=== PATIENT | female | born 1955 | race Caucasian/White ===

== ENCOUNTER → 2017-07-10 | Outpatient (CLI) | payer BC | LOC: NUC 09:27 → EDSTATUS 14:02 → NUC 14:06 → EDSTATUS 21:06 → NUC 21:08 | DX: M25.561 Pain in right knee (principal); M79.89 Other specified soft tissue disorders; M25.562 Pain in left knee ==

== ENCOUNTER → 2020-06-04 | Outpatient (CLI) | payer OTHER, MEDICARE ==
[~2020-06-04] MED LIST: ADULT ONE DAI200 MCG PO; AMITRIPTYLINE H25 M3 PO; CLARITIN10 M3 PO; METFORMIN HCL500 M3 PO; MULTIVITAMINS PO; OMEPRAZOLE 20 M20 M1 PO; OMEPRAZOLE40 MG PO; OZEMPIC1 MG/0.75 SUBQ
== END ==
LOC: LAB 12:55
PROVIDERS: ATTEND Orthopaedic Surgery
DX: Z01.812 Encounter for preprocedural laboratory examination (principal); Z20.828 Contact with and (suspected) exposure to other viral communicable diseases

== ENCOUNTER 2020-06-08 06:20 | Inpatient (IN) | payer OTHER, MEDICARE ==
[2020-06-04 13:38] LABS: HEMATOCRIT 42.4 % (37.0-47.0); HEMOGLOBIN 14.6 gm/dL (12.0-15.0); MCH 31.4 pg (26.0-34.0); MCHC 34.4 g/dL (28.0-37.0); MCV 91.2 fL (80.0-100.0); RBC 4.64 mil/uL (4.20-5.00); RDW 13.3 % (10.5-14.5)
[2020-06-04 13:44] LABS: URINE BILIRUBIN NEGATIVE (Negative); URINE BLOOD TRACE (Negative); URINE GLUCOSE-RANDOM* NEGATIVE (Negative); URINE KETONES NEGATIVE (Negative); URINE NITRITE-REFLEX NEGATIVE (Negative); URINE PROTEIN (DIPSTICK) NEGATIVE (Negative); URINE UROBILINOGEN 0.2 E.U./dl (0.2-1.0)
[2020-06-04 13:45] LABS: URINE CLARITY HAZY; URINE COLOR YELLOW; URINE LEUKOCYTES-REFLEX 3+ (Negative)
[2020-06-04 13:48] LABS: SQUAMOUS 0-3 Few /LPF (0-3)
[2020-06-04 13:49] LABS: BACTERIA-REFLEX 1-9 Few /HPF (None Seen); CASTS None Seen /LPF (None Seen); CRYSTALS None Seen /LPF (None Seen); PROTIME 10.7 Seconds (9.3-11.4); URINE RBC 0-2 Rare /HPF (0-2)
[2020-06-04 13:56] LABS: CALCIUM 9.5 mg/dL (8.5-10.1); CREATININE 0.9 mg/dL (0.6-1.0); POTASSIUM 4.3 mmol/L (3.5-5.1)
--- NOTE | 2020-06-04 14:20 | EKG ---
[facility] [place] [address] ELECTROCARDIOGRAM REPORT Name: IRENE PEMBERTON Room #: PRE IN M.R.#: [id number] Admission: Attend Phys: Manjinder Berg MD Discharge: Date of : 55 Report #: [id number] THIS REPORT FOR: cc: Mina Braden MD, Travis J. MD Santiago, Patrick MD [facility] ~ THIS REPORT FOR: //name// [facility] Test Date: 2020-06-04 Test Time: 13:41:44 Pat Name: IRENE PEMBERTON Department: Room: Gender: F [employer] Machine: [facility] : 1955 Requested By: Manjinder Berg Order Number: [id number] MD: Jesse Rosales Measurements Intervals [place] Rate: 100 P: 41 [place]: 154 QRS: -18 QRSD: 95 T: 41 QT: 345 QTc: 445 Interpretive Statements Sinus tachycardia Borderline left axis deviation Low voltage, precordial leads No previous ECG available for comparison Electronically Signed On 06-04-2020 14:20:22 IT INFRASTRUCTURE MANAGER by Jesse Rosales [email or web address] <ELECTRONICALLY SIGNED> By: Jesse Rosales MD, FACC 06/04/20 1420 1341 1341 Jesse Rosales MD, FAC /EPI
[2020-06-05 05:07] LABS: GLYCOHEMOGLOBIN (HGB A1C) 7.4 % (4.8-5.6)
[~2020-06-08] VITALS: Ht 175.3 cm; Wt 84.4 kg
[2020-06-08 07:31] VITALS: BP 139/97
[2020-06-08 12:40] VITALS: BP 117/74
[2020-06-08 15:00] VITALS: BP 129/74
--- NOTE | 2020-06-08 15:23 | NUR ---
ASSUMED CARE 1220. PT IS A&O X4. PT COMPLAINS OF NAUSEA AND VOMITTING AND PAIN. PT HAS VOMITTED TWICE AND STATED THAT THIS HAPPENS WHEN SHE STARTS TO FEEL ANXIOUS. IV RIGHT AC COMPLAINS OF PAIN WHEN USING IV. PT STATES THAT SHE DOES NOT WANT US TO TAKE OUT IV RIGHT NOW AND SHE WANTS US TO WAIT UNTIL TOLD SO. FALL PRECAUTION. CALL LIGHT WITHIN REACH. SCD/MU HOSE IN PLACE. VSS. HYDROCODONE WAS GIVEN BUT SHE MAY HAVE THROWN IT UP SHE THREW UP 20 MINUTES AFTER GIVING HYDROCODONE. PT DOES NOT HAVE MUCH OF APPETITE. POLAR CARE IS IN PLACE. PT IS ON 2 LITERS OF OXYGEN AND TOLERATING WELL WITHOUT SOA OR DISCOMFORT. BG ARE RUNNING ABOUT 200. WILL CONTINUE TO MONITOR NAUSEA/VOMITTING
[2020-06-08 19:02] VITALS: BP 122/75
--- NOTE | 2020-06-09 02:23 | NUR ---
ASSESSED AT START OF SHIFT 1899. PT A&OX4 RATES PAIN 09/30. DENIES N/V. IV INTACT WITH FLUIDS INFUSING. YUNIOR DRESSING, POLAR PACK AND SCD'S IN PLACE. PT UP WITH STAND BY ASSIT TO THE BATHROOM. BSG CHECKED AND INSULIN COVERAGE PROVIDED. FALL PREC IN PLACE AND CALL LIGHT IN REACH WILL CONT WITH POC TILL EOS.
[2020-06-09 03:59] VITALS: BP 113/68
[2020-06-09 06:54] LABS: HEMATOCRIT 32.4 % (37.0-47.0); HEMOGLOBIN 10.8 gm/dL (12.0-15.0); MCHC 33.5 g/dL (28.0-37.0); MCV 92.7 fL (80.0-100.0); RBC 3.5 mil/uL (4.20-5.00); RDW 13.6 % (10.5-14.5); WBC 16.3 thou/uL (4.0-11.0)
[2020-06-09 07:25] VITALS: BP 122/76
--- NOTE | 2020-06-09 08:50 | NUR ---
I have reviewed the documentation by ARTUR LARKIN from 06/08/20 to 06/08/20 and I concur with it. TENA RYAN, PT, DPT
--- NOTE | 2020-06-09 09:53 | NUR ---
Patient did well walking to the bathroom using a walker with no increase in pain. She is hoping to discharge this afternoon to home. Patient has safety as her top priority for her recovery.
[2020-06-09 11:13] VITALS: BP 122/76
--- NOTE | 2020-06-09 11:25 | NUR ---
ON-GOING ASSESSMENT: CM REVIEWED CHART AND SPOKE WITH PT. PT IS S/P KNEE REVISION. PT REPORTS SHE LIVES IN A HOUSE WITH HER . PT REPORTS IF SHE ENTERS THE HOME THROUGH THE BACK WHERE HER DECK IS SHE HAS ABOUT 8 STEPS WITH HANDRAILS AND IF SHE ENTERS THROUGH THE GARAGE THERE IS ABOUT 12 STEPS WITH HANDRAILS. PT REPORTS SHE HAS A ROLLATER WALKER AT HOME TO ASSIST WITH AMBULATION. PHYSICAL THERAPY WORKED WITH PATIENT HERE AND ARE RECOMMENDING A FWW. CM DISCUSSED WITH PATIENT AND SHE REPORTS SHE JUST WANTS TO USE HER ROLLATER. CM AGAIN DISCUSSED THAT FWW IS SAFER FOR PATIENT AND CONCERNS WITH HER USING THE ROLLATER AND REVIEWED WITH PHYSICAL THERAPY. PT STATING SHE DOES NOT WANT A FWW AND SHE WILL NOT USE IT. PT DECLINING RECOMMENDATION FOR FWW EVEN AFTER EDUCATION ON SAFETY MEASURES. PT REPORTS SHE HAS OUTPATIENT THERAPY ARRANGED AT [facility]. PT REPORTS HAVING NO NEEDS FROM . PT IS TO DISCHARGE TODAY. CASE CLOSED.
--- NOTE | 2020-06-09 11:44 | NUR ---
I have reviewed the student documentation.
--- NOTE | 2020-06-09 12:55 | NUR ---
I have reviewed the documentation by ARTUR LARKIN from 06/09/20 to 06/09/20 and I concur with it. TENA RYAN, PT, DPT
--- NOTE | 2020-06-09 18:13 | NUR ---
Assumed care of pt. at 0700. Pt. was calm and cooperative. Pt. was excited to discharge today. Pt. was cleared by PT/OT/and Physician for discharge. Pt. was given education and discharge papers. Left unit with all belongings.
--- NOTE | 2020-06-10 08:16 | O ---
[facility] [place] [address] OPERATIVE REPORT Name: IRENE PEMBERTON Room #: 442-[facility] IN M.R.#: [id number] Admission: 06/08/20 Attend Phys: Manjinder Berg MD Discharge: 06/09/20 Date of : 55 Report #: [id number] THIS REPORT FOR: cc: Mina Braden MD, Travis J. MD Abraham, Scott M. MD ~ CC: Manjinder Braden DATE OF SERVICE: 06/08/2020 PREOPERATIVE DIAGNOSIS: Right total knee arthroplasty, aseptic loosening. POSTOPERATIVE DIAGNOSIS: Right total knee arthroplasty, aseptic loosening. PROCEDURE: Revision of right total knee arthroplasty, all components. SURGEON: Manjinder Berg MD. ZINC PLATE CUTTER: Ro Murphy PA-C. INDICATIONS FOR ZINC PLATE CUTTER: Throughout the case, extensive retraction and manipulation of the knee was required. This was afforded to me by my assistant professor of german. ANESTHESIA: LMA with an adductor canal block. IMPLANTS: Steele and Nephew size 6 Legion revision Oxinium femur with a 4 mm offset resident manager at the 6 o'clock position and a 16 x 160 stem, a size 4 tibia with a 2 mm offset resident manager at the 3 o'clock position and a 14 x 160 stem, a size 35 patella and a size 15 constrained polyethylene. TOURNIQUET TIME: 92 minutes. ESTIMATED BLOOD LOSS: 25 mL. COMPLICATIONS: None. SPECIMENS: Intraoperative frozen section was sent that showed only 1 white cell per high powered field as well as intraoperative culture x 2. CONDITION UPON LEAVING THE OPERATING ROOM: Stable. INDICATIONS FOR PROCEDURE: The patient is a 65-year-old female who has had a right total knee arthroplasty in about 5 years or so. She has had increasing pain in her knee and workup for infection was negative. Bone scan showed increased uptake and it was likely she was demonstrating aseptic loosening. [address] [address] OPERATIVE REPORT Name: IRENE PEMBERTON Room #: 442-P [facility] IN M.R.#: [id number] Admission: 06/08/20 Attend Phys: Manjinder Berg MD Discharge: 06/09/20 Date of : 55 Report #: [id number] After discussion with her, she elected for revision right total knee arthroplasty. DESCRIPTION OF PROCEDURE: Risks, benefits, alternatives, complications were discussed in detail with the patient including but not limited to risk of anesthesia, risk of damage to nerves, arteries, blood vessels, risk for infection, bleeding, risk for continued knee pain and need for reoperation. Informed consent was obtained from the patient. The right knee was appropriately marked in the preoperative holding area. IV Ancef was given for preoperative antibiotics. She was brought to the operating room and placed in the supine position on operating room table. LMA anesthesia was induced without complication. Tourniquet was placed on the right thigh. Right lower extremity was prepped and draped in normal sterile fashion. Timeout was performed properly identifying the patient, procedure as well as the instrumentation and implants. All in the operating room were in agreement. Right lower extremity was exsanguinated, tourniquet was inflated. Tourniquet time was 92 minutes. Previous scar was used and this was opened with a 10 blade. Dissection was taken down to the fascia and deep flaps were developed medially and laterally. Fresh 10 blade was used to make a medial parapatellar arthrotomy and cultures of the synovial fluid were taken and sent x 2. Several samples of synovial tissue were then sent to perform intraoperative frozen section and this demonstrated only 1 white cell per high powered field. The polyethylene was removed and the femoral component was dissected using curved rigid osteotome. Dissection came out very easily and it was presumed that this demonstrated aseptic loosening. The knee was flexed. Patella was subluxated and the tibia was removed with rigid osteotomes. This also came out rather easily. Also felt to demonstrate aseptic loosening. After removal of all excess cement, the tibial and femoral canals were reamed. The tibia was reamed up to a size 16 and a cleanup cut was made on the tibia. The tibia was sized, found to be a size 4. This fit best with the 2 mm offset resident manager at the 3 o'clock position and the tibia was prepped and a trial tibial component was placed. Attention was turned to the femur. This was reamed up to a size 16, at which point, the reamer was stable. A clamp cut was made on the distal femur, a size 6 femoral cutting block fit best with a 4 mm offset resident manager in the 6 o'clock position and posterior, anterior and chamfer cuts were made. A femoral trial was placed and box cut was made. This was then trialed with a size 11, a size 13 and a size 15 polyethylene and size 15 polyethylene demonstrated the best stability medial and lateral with a constrained polyethylene implant. The previous patellar button was then removed with oscillating saw. A cleanup cut was made on the patella and a size 35 patellar trial was placed. Knee was taken through range of motion, found to be stable, found to have good patellar tracking. After this, all trial components were removed. The final implants were opened and assembled on the back table. Cement was mixed and the final implants were cemented in place using standard cementation techniques. While the cement cured, a periarticular injection consisting of morphine, ropivacaine, epinephrine and Toradol was placed around the knee joint capsule. After the cement cured, tourniquet was deflated. [facility] [address] [place] [address] OPERATIVE REPORT Name: IRENE PEMBERTON Room #: 442-P [facility] IN M.R.#: [id number] Admission: 06/08/20 Attend Phys: Manjinder Berg MD Discharge: 06/09/20 Date of : 55 Report #: [id number] Hemostasis was obtained with Bovie cautery. A final size 15 constrained polyethylene was placed. A gram of vancomycin was placed deep in the joint. Fascia was closed with 0 Vicryl, skin was closed with 2-0 Vicryl. Skin staple and a YUNIOR dressing were applied. The patient tolerated this procedure well and went to the recovery room under care of anesthesia postoperatively. <ELECTRONICALLY SIGNED> By: Manjinder Berg MD 06/10/20 0816 1603 1708 Manjinder Berg MD /nt
--- NOTE | 2020-06-11 13:08 | PATH ---
[facility] [address] [place] [address] PATHOLOGY RPT PROCEDURE Name: IRENE PEMBERTON Room #: 442-P DIS IN M.R.#: [id number] Admission: 06/08/20 Date of : 55 Discharge: 06/09/20 Report #: [id number] Path Case #: [id number] [facility] Accession Number: [id number] . 01 Material submitted: . knee - RIGHT KNEE TISSUE FS. Modifiers: right . 01 Clinical history: . TOTAL KNEE REVISION . 02 Frozen section diagnosis: . FROZEN SECTION DIAGNOSIS: (Yuliana Mac MD) . FSA1. Right knee tissue, right knee revision: - Specimen is predominantly fibroadipose and fibrofatty tissue limiting frozen section interpretation/sectioning; no definite increase in neutrophils (1-2/HPF focal) in the synovium. . These findings are discussed with Dr. Manjinder Berg in OR1 at [facility] and a written report is placed in the patient's chart. . . FROZEN SECTION GROSS DESCRIPTION: Specimen is received fresh from the OR labeled with the patient's name, "right knee tissue", consists of 4 x 3 x 2 cm of fibrofatty tissue with focal synovial tissue identifiable. The synovial tissue is shaved and submitted for frozen section as FSA1, this is subsequently submitted for permanent sections as A1. The remainder of the tissue is submitted for permanent sections in A2-A4. (IUV:yanet; 06/08/2020) . . Frozen section performed at [facility], [address] [place] [address]. IZV/QMS . 02 Diagnosis: Synovium, right knee synovium, right knee revision: - Synovial tissue showing reactive changes with scattered giant cells associated with mild chronic inflammation. - No increase in neutrophils within the inflammatory infiltrate (scattered 1-2 neutrophils identified/HPF); none greater than 5/HPF. - Fragments of dense fibrous tissue as well as fibroadipose tissue. . (IUV:mml; 06/10/2020) QLM 06/10/2020 1302 Local [facility] [address] [place] [address] PATHOLOGY RPT PROCEDURE Name: IRENE PEMBERTON Room #: 442-P DIS IN M.R.#: [id number] Admission: 06/08/20 Date of : 55 Discharge: 06/09/20 Report #: [id number] Path Case #: [id number] . 02 Electronically signed: . Yuliana Mac MD, Pathologist NPI- [id number] . 01 Gross description: . PLEASE SEE FROZEN SECTION FOR GROSS DESCRIPTION. /[facility] 06/09/2020 1417 Local . 02 Pathologist provided ICD-10: M65.9 . 02 CPT . 562852, [id number] Specimen Comment: A courtesy copy of this report has been sent to [phone] Specimen Comment: Report sent to Performed at: [address] [id number] MD Ken Cook MD Phone: [phone] Performed at: [address] [id number] MD Yuliana Mac MD Phone: [phone]
== END 2020-06-09 11:30 | disposition home or self-care (01) | DRG 467 ==
LOC: TBA 06:20 → 4S 06:20 → PRE 14:24 → 4S 06-09 11:30
PROVIDERS: ADMIT Orthopaedic Surgery; ATTEND Orthopaedic Surgery
PROC: 0SWC0JZ Revision of Synthetic Substitute in Right Knee Joint, Open Approach (ICD-10-PCS; principal; 2020-06-08)
DX: T84.032A Mechanical loosening of internal right knee prosthetic joint, initial encounter (principal); R65.10 Systemic inflammatory response syndrome (SIRS) of non-infectious origin without acute organ dysfunction; E11.9 Type 2 diabetes mellitus without complications; Y83.8 Other surgical procedures as the cause of abnormal reaction of the patient, or of later complication, without mention of misadventure at the time of the procedure; Y92.89 Other specified places as the place of occurrence of the external cause; Z88.2 Allergy status to sulfonamides; Z88.8 Allergy status to other drugs, medicaments and biological substances
CPT/HCPCS: 10102; 50010; 50101; 50415; 50954; 51130; 51225; 51320; 51412; 53000; 53078; 56528; 57095; 57103; 57110; 57179; 62110; 62900; 64042; 70005